=== PATIENT | female | born 1965 | race Caucasian/White ===

== ENCOUNTER 2020-11-10 23:56 | Emergency (ER) | payer MEDICAID ==
[~2020-11-10] VITALS: Ht 157.5 cm; Wt 65.8 kg
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
[2020-11-11] MEDS ORDERED: IOHEXOL-300 100 ML VIAL IV ONE (00:09)
[2020-11-11] MEDS ORDERED: CT SWABBABLE VALVE TRANS SET 1 EA INFUS.SET MC ONE (00:09)
[2020-11-11] MEDS ORDERED: IV NS 0.9% 250 ML IV ONE (00:09)
[2020-11-11 00:25] LABS: BASOPHILS % (AUTO) 0.2 % (0.0-2.0); EOSINOPHILS % (AUTO) 0.3 % (0.0-6.0); HEMATOCRIT 44 % (33-45); HEMOGLOBIN 14.3 g/dL (11.5-14.8); LYMPHOCYTES # (AUTO) 1.8 /CMM (0.8-4.8); LYMPHOCYTES % (AUTO) 14.3 % (20.0-44.0); MEAN CORPUSCULAR HGB CONC 33 g/dl (31.0-36.0); MEAN CORPUSCULAR VOLUME 90 fL (82-100); MONOCYTES # (AUTO) 0.6 /CMM (0.1-1.30); MONOCYTES % (AUTO) 4.7 % (2.0-12.0); NEUTROPHILS # (AUTO) 10.3 /CMM (1.8-8.9); NEUTROPHILS % (AUTO) 80.5 % (43.0-81.0); PLATELET COUNT (AUTO) 347 /CMM (150-450); RED BLOOD CELL COUNT(AUTO) 4.87 MIL/uL (4.0-5.2); WHITE BLOOD COUNT (AUTO) 12.8 K/uL (4.3-11.0)
[2020-11-11 00:58] LABS: CALCIUM, SERUM 9.1 mg/dL (8.5-10.1); CARBON DIOXIDE 24 mmol/L (21-32); CHLORIDE 108 mmol/L (98-107); GLUCOSE 121 mg/dL (74-106); POTASSIUM 3.6 mmol/L (3.5-5.1); SODIUM SERUM 143 mmol/L (136-145); UREA NITROGEN, BLOOD 11 mg/dL (7-18)
[2020-11-11 01:01] LABS: ACETAMINOPHEN 0 ug/ml (10-30)
--- NOTE | 2020-11-11 01:12 | NUR ---
covid swab sent to lab
[2020-11-11 01:16] LABS: ALANINE AMINOTRANSFERASE 21 U/L (12-78); ALBUMIN 3.8 g/dL (3.4-5.0); ALKALINE PHOSPHATASE 89 U/L (46-116); BILIRUBIN,DIRECT 0.1 mg/dL (0.0-0.2); BILIRUBIN,TOTAL 0.4 mg/dL (0.2-1.0)
[2020-11-11 01:17] LABS: TOTAL PROTEIN, SERUM 7.4 g/dL (6.4-8.2)
[2020-11-11 01:21] LABS: ALCOHOL, BLOOD < 3 mg/dL (0-0)
[2020-11-11 01:23] LABS: ASPARTATE AMINOTRANSFERASE 14 U/L (15-37)
--- NOTE | 2020-11-11 01:44 | NUR ---
PER LAB, COVID NEGATIVE
--- NOTE | 2020-11-11 02:04 | NUR ---
PT AMBULATORY WITH STEADY GAITS TO PERFORM VISUAL ACUITY EXAM
--- NOTE | 2020-11-11 02:07 | NUR ---
[facility] CALLED FOR HIGHER LEVEL OF CARE. NO BED AVAILABILITY.
--- NOTE | 2020-11-11 02:15 | NUR ---
[facility] CALLED FOR HIGHER LEVEL OF CARE. F[facility]ESHEET AND CLINICALS FAXED
--- NOTE | 2020-11-11 02:23 | NUR ---
[facility] CALLED FOR HIGHER LEVEL OF CARE.
--- NOTE | 2020-11-11 02:29 | NUR ---
[facility] CALLED FOR HIGHER LEVEL OF CARE. MESSAGE LEFT WITH [facility]ER [facility].
--- NOTE | 2020-11-11 02:44 | NUR ---
VITO, FRIEND: [phone]
--- NOTE | 2020-11-11 04:03 | NUR ---
PT ACCEPTED TO [facility] ER BY DR GERMAN. # FOR REPORT [phone]
--- NOTE | 2020-11-11 04:06 | NUR ---
[facility] CALLED. ETA [phone]
--- NOTE | 2020-11-11 04:09 | NUR ---
REPORT GIVEN TO PATRICIA VALENCIA FOR CONTINUATION OF CARE.
[2020-11-11 04:11] VITALS: BP 122/84
--- NOTE | 2020-11-11 04:17 | NUR ---
Patient is resting comfortably in bed with eyes closed. Easily aroused. VSS
--- NOTE | 2020-11-11 05:09 | NUR ---
[facility] T BED SIDE TO SECTION BEAMER THE PT. REPORT GIVEN
--- NOTE | 2020-11-11 05:13 | NUR ---
PT WAS PICKED UP BY [facility] VIA GURNEY IN STABLE CONDITION.
== END 2020-11-11 05:13 | disposition short-term general hospital (02) ==
LOC: ER 23:59
DX: S05.61XA Penetrating wound without foreign body of right eyeball, initial encounter (principal); X78.9XXA Intentional self-harm by unspecified sharp object, initial encounter; Y92.89 Other specified places as the place of occurrence of the external cause; Z88.5 Allergy status to narcotic agent; Z20.822 Contact with and (suspected) exposure to COVID-19
CPT/HCPCS: 36415; 70481; 80048; 80076; 80143; 80320; 85025; 87426; 99285; C9803; J7050; Q9967; G0480